=== PATIENT | female | born 1985 ===

== ENCOUNTER 2016-10-04 06:01 | Observation (INO) | payer BC, OTHER ==
[2016-10-02 13:54] VITALS: BMI 35.2
[2016-10-04] MEDS ORDERED: Lactated Ringer's 1,000 ML IV ONE ×2 (06:51→08:00)
[2016-10-04 06:54] LABS: BASO % 0.4 % (0.0-2.0); EOS # 0.1 K/uL (0.0-0.7); EOS % 0.9 % (0.0-4.0); HEMOGLOBIN 12.9 g/dL (12.0-16.0); LYMPH % 22.9 % (20.0-40.0); MEAN CELL VOLUME 89.3 fl (81.0-99.0); MEAN CORPUSCULAR HGB CONC 33.6 g/dL (33.0-37.0); MEAN PLATELET VOLUME 7.7 fl (7.2-11.7); MONO # 0.5 K/uL (0.0-0.8); MONO % 5.9 % (0.0-10.0); NEUT # 6.2 K/uL (1.8-7.0); NEUT % 69.9 % (50.0-75.0); RBC 4.29 Mil/uL (3.80-5.20); RED CELL DISTRIBUTION WIDTH 12.9 % (11.5-14.5); WHITE BLOOD COUNT 8.8 K/uL (4.8-10.8)
[2016-10-04 06:56] LABS: BLOOD UREA NITROGEN 13 mg/dl (7-17); GFR AFRICAN-AMERICAN > 60; GFR NON-AFRICAN AMERICAN > 60
[2016-10-04] MEDS ORDERED: Propofol 10 mg/ml Inj (20 ML) ONE ×2 (07:14→09:26)
[2016-10-04] MEDS ORDERED: ePHEDrine 50 mg/ml Inj ONE (07:14)
[2016-10-04] MEDS ORDERED: Midazolam 2 MG/2 ML VIAL ONE (07:14)
[2016-10-04] MEDS ORDERED: Succinylcholine 200 mg/10 ml Inj IV ONE (07:15)
[2016-10-04] MEDS ORDERED: Rocuronium 10 mg/ml (5 ml) ONE (07:15)
[2016-10-04] MEDS ORDERED: Methylene Blue 10 mg/mL(10ml) IV ONE (07:30)
[2016-10-04] MEDS ORDERED: Bupivacaine 0.25%-Epinephrine 1:200,000 (30 ml) Inj ONE (07:30)
[2016-10-04] MEDS ORDERED: Phenylephrine 10 mg/ml Inj ONE (08:14)
[2016-10-04] MEDS ORDERED: Dexamethasone 4 mg/1 ml ONE (08:53)
[2016-10-04] MEDS ORDERED: Vasopressin 20 Units/ml Inj ONE (08:53)
[2016-10-04] MEDS ORDERED: HEMOSTATIC MATRIX 10 ML DIS.NEEDLE TOP ONE (09:05)
[2016-10-04] MEDS ORDERED: Neostigmine Methylsulfate 3mg/3ml Syringe IV ONE (09:06)
[2016-10-04] MEDS ORDERED: Neostigmine Methylsulfate 2 MG/2 ML ML IV ONE (09:06)
[2016-10-04] MEDS ORDERED: Oxycodone/Acetaminophen 5/325 mg Tab PO PRN ×4 (09:44→20:29)
--- NOTE | 2016-10-04 09:44 | PCM.SURG1 ---
Surgeon's Initial Post Op Note - Surgeon's Notes Surgeon: jared hutchinson md Buffing Wheel Inspector: Janna rebolledo DO Type of Anesthesia: General Endo Pre-Operative Diagnosis: Chronic pelvic pain. Abnormal uterine bleeding. Fibroid uterus. Infertility Operative Findings: bulky uterus, fibroids possible adenomyosis likely. umbilical hernia 1.5 cm in diameter fat containting. pelvic adhesions. endometriosis in [place] stage II. posterior uterine wall myoma. congested bladder mucosa, hunner lessions c/w interstitial cystitis. Ureters efluxing urine freely Post-Operative Diagnosis: Chronic pelvic pain. intrapelvic adhesions. Adenomyosis. Interstitial cystitits. Abnormal uterine bleeding. Fibroid uterus. Infertility Operation Performed: Robotic assisted excision of endometriosis. umbilical hernia repair. Chromotubation. Anterolysis. Cystoscopy Specimen/Specimens Removed: endometriosis Estimated Blood Loss: EBL {In ML}: 10 Blood Products Given: N/A Drains Used: No Drains Post-Op Condition: Good Date of Surgery/Procedure: 10/04/16 Time of Surgery/Procedure: 09:46
[2016-10-04] MEDS ORDERED: HYDROmorphone 0.5 mg/0.5 ml ISec ONE (09:55)
[2016-10-04] MEDS: HYDROmorphone 0.5 mg/0.5 ml ISec IVP PRN ×5 (10:00→11:00)
[2016-10-04] MEDS ORDERED: Oxycodone/Acetaminophen 5/325 mg Tab PO ONE (15:20)
[2016-10-04] MEDS ORDERED: Morphine 4 MG/ML VIAL IVP PRN (20:25)
[2016-10-04] MEDS: Lactated Ringer's 1,000 ML IV SCH (21:27)
[2016-10-05] MEDS: ceFAZolin 1 GM in Sodium Chloride 0.9% 100 ML IVPB SCH ×2 (00:42→08:19)
[2016-10-05] MEDS: Lactated Ringer's 1,000 ML IV SCH ×2 (00:58→11:36)
[2016-10-05 07:44] LABS: BASO % 0.1 % (0.0-2.0); HEMOGLOBIN 11.4 g/dL (12.0-16.0); LYMPH # 1.5 K/uL (1.0-4.3); LYMPH % 11.5 % (20.0-40.0); MEAN CELL VOLUME 89.3 fl (81.0-99.0); MEAN CORPUSCULAR HEMOGLOBIN 29.4 pg (27.0-31.0); MEAN PLATELET VOLUME 7.8 fl (7.2-11.7); MONO # 0.8 K/uL (0.0-0.8); NEUT # 10.8 K/uL (1.8-7.0); NEUT % 82.4 % (50.0-75.0); RBC 3.88 Mil/uL (3.80-5.20); RED CELL DISTRIBUTION WIDTH 12.6 % (11.5-14.5); WHITE BLOOD COUNT 13.1 K/uL (4.8-10.8)
[2016-10-05 07:45] LABS: ALB/GLOB RATIO 1.2 (1.0-2.1); ALBUMIN 3.3 g/dL (3.5-5.0); ALT/SGPT 41 U/L (9-52); AST/SGOT 20 U/L (14-36); BLOOD UREA NITROGEN 8 mg/dl (7-17); CALCIUM 8.5 mg/dL (8.4-10.2); GFR AFRICAN-AMERICAN > 60; GFR NON-AFRICAN AMERICAN > 60
[2016-10-05 08:37] VITALS: BP 132/76; PULSE 60; RESP 20; TEMP 98.4; O2SAT 99
[2016-10-08] MEDS ORDERED: ceFAZolin 1 GM in Sodium Chloride 0.9% 100 ML IVPB SCH (17:00)
== END 2016-10-05 14:29 | disposition home or self-care (01) ==
LOC: H.OPSURG 06:01 → H.MEDSURG1 20:18 → H.OPSURG 20:44
PROVIDERS: ADMIT Obstetrics & Gynecology; ATTEND Obstetrics & Gynecology
DX: D25.9 Leiomyoma of uterus, unspecified (principal); G89.29 Other chronic pain; N80.0 Endometriosis of uterus; N93.9 Abnormal uterine and vaginal bleeding, unspecified; N97.9 Female infertility, unspecified; K42.9 Umbilical hernia without obstruction or gangrene; N73.6 Female pelvic peritoneal adhesions (postinfective)
CPT/HCPCS: 36415; 49652; 52000; 58350; 58662; 80048; 80053; 85025; 86850; 86900; 88305; G0378; J0330; J0690; J1100; J1170; J1885; J2001; J2250; J2370; J2405; J2704; J2710; J2765; J3010; J7040; J7120; S2900